=== PATIENT | male | born 1985 | race Caucasian/White ===

== ENCOUNTER 2025-01-20 15:42 | Emergency (ER) | payer OTHER, MEDICAID ==
[~2025-01-20] VITALS: Ht 167.6 cm; Wt 85.0 kg
[2025-01-20 15:50] VITALS: TEMP 36.8; O2SAT 99
[2025-01-20] MEDS: LIDOCAINE 5% PATCH TOP SCH (16:51)
[2025-01-20] MEDS: KETOROLAC 15MG/ML VIAL IM ONE (16:51)
[2025-01-20] MEDS ORDERED: NAPR-1176 MT (17:20)
[2025-01-20] MEDS ORDERED: LIDO-53 TP (17:20)
[2025-01-20 17:50] VITALS: BP 138/92; PULSE 75; RESP 14; O2SAT 98
== END 2025-01-20 17:52 | disposition home or self-care (01) ==
LOC: ER 15:42
DX: S40.019A Contusion of unspecified shoulder, initial encounter (principal); V43.52XA Car driver injured in collision with other type car in traffic accident, initial encounter; Y92.410 Unspecified street and highway as the place of occurrence of the external cause; Y93.89 Activity, other specified; Y99.8 Other external cause status
CPT/HCPCS: 99283; 73030; 96372; J1885